=== PATIENT | female | born 1985 | race Caucasian/White ===

== ENCOUNTER 2021-11-13 12:21 | Emergency (ER) | payer OTHER ==
[~2021-11-13] VITALS: Ht 167.6 cm; Wt 70.0 kg
[2021-11-13 13:22] VITALS: BP 149/92
[2021-11-13 13:30] VITALS: BP 141/93
[2021-11-13] MEDS ORDERED: HYDROCO/APAP1 TA9 PO (13:42)
[2021-11-13] MEDS ORDERED: AMOX/K CLAV875 M1 PO (13:42)
[2021-11-13] MEDS ORDERED: FLOXIN OTIC0.3 % AU (13:42)
[2021-11-13 13:45] VITALS: BP 156/104
== END 2021-11-13 13:59 | disposition home or self-care (01) ==
LOC: ED 12:21
DX: H60.93 Unspecified otitis externa, bilateral (principal); F17.210 Nicotine dependence, cigarettes, uncomplicated